=== PATIENT | male | born 1975 | race Hispanic/Latino ===

== ENCOUNTER 2022-08-08 11:46 | Emergency (ER) | payer BC ==
[2022-08-08] MEDS ORDERED: Lidocaine 1% PF 5 ML VIAL ONE (13:57)
[2022-08-08] MEDS ORDERED: Bacitracin 1 PK ONE (14:43)
== END 2022-08-08 15:35 | disposition home or self-care (01) ==
LOC: ERS 11:46
DX: S01.81XA Laceration without foreign body of other part of head, initial encounter (principal); W22.8XXA Striking against or struck by other objects, initial encounter; E11.9 Type 2 diabetes mellitus without complications
CPT/HCPCS: 12004; 70450